=== PATIENT | male | born 1945 | race Caucasian/White ===

== ENCOUNTER 2016-06-06 22:59 | Emergency (ER) | payer OTHER, BC ==
[~2016-06-06] VITALS: Ht 170.2 cm; Wt 80.8 kg
[~2016-06-06 22:59] MED LIST: ADVIN25050 INH; AMT50 PO; ATEN50TA8 PO; ATV1 PO; ENAL5TAB83 PO; FINA5TAB PO; FLM4 PO; FLNIN NAE; FLVHFA220 INH; GLC500 PO; NAPR1TAB9 PO
[2016-06-06 23:06] VITALS: Ht 170.2 cm; Wt 80.8 kg
--- NOTE | 2016-06-06 23:40 | EMERGENCY ROOM VISIT NOTE ---
History Report prepared by [place]: Carrie Velázquez Under the Supervision of: Dr. Nohelia Godinez M.D. First contact with patient: 23:31 Chief Complaint: OTHER COMPLAINT Stated Complaint: REDNESS IN LT ARM, PAIN RADIATING TO BREAST History of Present Illness The patient is a 70 year old male who presents to the Emergency Room with complaints of worsening redness with inflammation to the left sided chest down his left arm starting 2 days [employer]. The patient states that he got a pneumonia shot in his upper left chest 2 days ago and since the shot he has had redness going down his left arm. The patient states that since the redness started he also has pain with touching his left side chest which concerned him to come be evaluated at the ED. The patient states that he has had the pneumonia shot in the past with no reaction. He denies any recent fevers or any recent heavy lifting. The patient states that he has a medical history of diabetes and sarcoidosis. He states that he had had black mold spores where he works and had a recent X-ray and blood work done at his PCP office but has not yet received the results. Source of History: patient Onset: 2 days [employer] Position: chest (left), arm (left) Quality: other (redness) Timing: worsening Associated Symptoms: No fevers Review of Systems See HPI for pertinent positives & negatives. A total of 10 systems reviewed and were otherwise negative. Past Medical & Surgical Medical Problems: (1) Diabetes (2) Sarcoidosis Family History No pertinent family history secondary to age Social History Smoking Status: Former Smoker Marital Status: Housing Status: lives with significant other Occupation Status: retired Current/Historical Medications Scheduled Amitriptyline Hcl (Elavil), 50 MG PO HS Atenolol (Tenormin), 50 MG PO DAILY Cephalexin Monohydrate (Keflex), 500 MG PO QID Enalapril (Vasotec), 5 MG PO DAILY Lorazepam (Ativan), 1 MG PO HS Scheduled PRN Acetaminophen (Tylenol), 1,000 MG PO BID PRN for Pain Fluticasone Prop/Salmeterol (Advair Diskus 250/50 60 Dose), 1 PUFF INH BID PRN for SOB/Wheezing Fluticasone Propionate (Flovent Hfa), 1 PUFFS INH BID PRN for SOB/Wheezing Fluticasone Propionate (Nasal) (Flonase Allergy Relief), 1 SPRAY DC DAILY PRN for Nasal Congestion Metformin Hcl (Glucophage), 500 MG PO BID PRN for HYPERGLYCEMIA Methocarbamol (Robaxin), 500 MG PO DAILY PRN for Muscle Spasms Allergies Coded Allergies: Thiopental (Verified Allergy, Severe, ANAPHYLAXIS, 06/07/16) Physical Exam Vital Signs Date Time Temp Pulse Resp B/P Pulse Ox O2 Delivery O2 Flow Rate FiO2 06/07/16 02:20 36.7 74 18 121/67 97 06/07/16 01:07 69 18 130/75 96 Room Air 06/06/16 23:06 36.7 82 17 127/67 93 Room Air Physical Exam Vital signs reviewed. General: Elderly, well appearing, in no significant distress. HEENT: No scleral icterus, PERRLA, neck supple. Atraumatic. Cardiovascular: Regular rate and rhythm, no extra sounds. Pulmonary: Clear to auscultation bilaterally, normal work of breathing. Abdomen: Soft, nontender, nondistended, positive bowel sounds. Musculoskeletal: Atraumatic, no peripheral edema. Neurologic: Patient awake alert and oriented x 3. Skin: Warm, dry, erythema from the left distal pectoralis region along the medial side of the left upper arm to the AC space. Medical Decision & Procedures Laboratory Results 06/07/16 00:00 Red Blood Count 4.91, Mean Corpuscular Volume 85.7, Mean Corpuscular Hemoglobin 31.8, Mean Corpuscular Hemoglobin Concent 37.1, Mean Platelet Volume 11.0, Neutrophils (%) (Auto) 62.7, Lymphocytes (%) (Auto) 27.3, Monocytes (%) (Auto) 6.9, Eosinophils (%) (Auto) 2.4, Basophils (%) (Auto) 0.5, Neutrophils # (Auto) 4.11, Lymphocytes # (Auto) 1.79, Monocytes # (Auto) 0.45, Eosinophils # (Auto) 0.16, Basophils # (Auto) 0.03 06/07/16 00:00 Test 06/07/16 00:00 White Blood Count 6.55 K/uL (4.8-10.8) Red Blood Count 4.91 M/uL (4.7-6.1) Hemoglobin 15.6 g/dL (14.0-18.0) Hematocrit 42.1 % (42-52) Mean Corpuscular Volume 85.7 fL (80-100) Mean Corpuscular Hemoglobin 31.8 pg (25-34) Mean Corpuscular Hemoglobin Concent 37.1 g/dl (32-36) Platelet Count 150 K/uL (130-400) Mean Platelet Volume 11.0 fL (7.4-10.4) Neutrophils (%) (Auto) 62.7 % Lymphocytes (%) (Auto) 27.3 % Monocytes (%) (Auto) 6.9 % Eosinophils (%) (Auto) 2.4 % Basophils (%) (Auto) 0.5 % Neutrophils # (Auto) 4.11 K/uL (1.4-6.5) Lymphocytes # (Auto) 1.79 K/uL (1.2-3.4) Monocytes # (Auto) 0.45 K/uL (0.11-0.59) Eosinophils # (Auto) 0.16 K/uL (0-0.5) Basophils # (Auto) 0.03 K/uL (0-0.2) RDW Standard Deviation 40.3 fL (36.4-46.3) RDW Coefficient of Variation 12.9 % (11.5-14.5) Immature Granulocyte % (Auto) 0.2 % Immature Granulocyte # (Auto) 0.01 K/uL (0.00-0.02) Anion Gap 9.0 mmol/L (3-11) Est Creatinine Clear Calc Drug Dose 56.7 ml/min Estimated GFR () 69.6 Estimated GFR (Non- 60.1 BUN/Creatinine Ratio 15.0 (10-20) Calcium Level 8.9 mg/dl (8.5-10.1) Total Bilirubin 0.3 mg/dl (0.2-1) Direct Bilirubin mg/dl (0-0.2) Aspartate Amino Transf (AST/SGOT) 13 U/L (15-37) Alanine Aminotransferase (ALT/SGPT) 17 U/L (12-78) Alkaline Phosphatase 79 U/L (45-117) Total Protein 6.7 gm/dl (6.4-8.2) Albumin 3.6 gm/dl (3.4-5.0) Chemistry Specimen Hemolysis Laboratory results per my review. Medications Administered Medications (Trade) Dose Ordered Sig/Tania Route Start Time Stop Time Status Last Admin Dose Admin Ceftriaxone Sodium (Rocephin Inj) 1 gm NOW STAT IV 06/06/16 23:43 06/06/16 23:44 DC 06/07/16 00:02 1 GM ED Course 2321: Past medical records reviewed. The patient was evaluated in room A3. A complete history and physical examination was performed. 2343: Ordered Rocephin Inj 1 gm IV. 0212: Upon reevaluation, the patient appeared to have improvement of his symptoms. I discussed findings with him. He verbalized agreement of the treatment plan. The patient was discharged home. Medical Decision The patient is a 70 year old male who presents to the ED with complaints of skin redness with chest pain. Differentials include but is not limited to cellulitis, abscess, MRSA infection, DVT, necrotizing fasciitis, dermatitis, drug eruption, as well as others were entertained.. This pt was evaluated and appeared to be in no distress. IV access was obtained and lab work was drawn. Pt was medicated with ceftriaxone 1 gm IV. Lab work reveals a normal WBC. I do not suspect DVT at this time. The erythema is not in the location of the injection. Pt was given a Rx for keflex x 7 days. He will f/u with PCP in 24-48 hours for reevaluation. He was advised to return to the ED for worsening of symptoms or any medical concerns. Impression Primary Impression: Cellulitis of left upper extremity Scribe Attestation The scribe's documentation has been prepared under my direction and personally reviewed by me in its entirety. I confirm that the note above accurately reflects all work, treatment, procedures, and medical decision making performed by me. Departure Information Dispostion Home / Self-Care Prescriptions Cephalexin Monohydrate (Keflex) 500 Mg Cap 500 MG PO QID, #28 CAP Prov: Nohelia Godinez M.D. 06/07/16 Referrals Kelley Small D.O. (PCP) Forms HOME CARE DOCUMENTATION FORM, IMPORTANT VISIT INFORMATION, WORK / SCHOOL INSTRUCTIONS Patient Instructions My [facility] Additional Instructions Diagnosis: Cellulitis Keflex 500 mg 4 times daily for 7 days. Monitor for signs of worsening. If fevers or increased pain develop, return to the ER for further management. Follow-up with your physician in 48 hours for reevaluation. Return to the ER for worsening of symptoms or any medical concerns.
[2016-06-06] MEDS ORDERED: CEFTRIAXONE SOD INJ 1 GM ADDVIAL IV STA (23:43)
[2016-06-07 00:09] LABS: BASO % 0.5 %; BASO ABS # 0.03 K/uL (0-0.2); COMPLETE YES; EOS % 2.4 %; HEMATOCRIT 42.1 % (42-52); IG% 0.2 %; LYMPH % 27.3 %; LYMPH ABS # 1.79 K/uL (1.2-3.4); MEAN CELL VOLUME 85.7 fL (80-100); MEAN CORPUSCULAR HEMOGLOBIN 31.8 pg (25-34); MEAN CORPUSCULAR HGB CONC 37.1 g/dl (32-36); MONO % 6.9 %; NEUT % 62.7 %; PLATELET COUNT 150 K/uL (130-400); RED BLOOD COUNT 4.91 M/uL (4.7-6.1); WHITE BLOOD COUNT 6.55 K/uL (4.8-10.8)
[2016-06-07 00:32] LABS: ALKALINE PHOSPHATASE 79 U/L (45-117); ALT/SGPT 17 U/L (12-78); AST/SGOT 13 U/L (15-37); BLOOD UREA NITROGEN 18 mg/dl (7-18); CALCIUM 8.9 mg/dl (8.5-10.1); CARBON DIOXIDE 27 mmol/L (21-32); CHLORIDE 105 mmol/L (98-107); GLUCOSE 182 mg/dl (70-99); SODIUM 141 mmol/L (136-145)
[2016-06-07] MEDS ORDERED: ADVIN25/60 INH (00:57)
[2016-06-07] MEDS ORDERED: ENAL5TAB83 PO (00:57)
[2016-06-07] MEDS ORDERED: FLUT0.15 NAE (00:57)
[2016-06-07] MEDS ORDERED: FLVHFA110 INH (00:57)
[2016-06-07] MEDS ORDERED: GLC/500 PO (00:57)
[2016-06-07] MEDS ORDERED: ATV/1 PO (00:57)
[2016-06-07] MEDS ORDERED: METH500T37 PO (00:58)
[2016-06-07] MEDS ORDERED: ACET-1256 PO (00:58)
[2016-06-07] MEDS ORDERED: CEPH500C PO (02:11)
[2016-06-07 02:20] VITALS: BP 121/67; PULSE 74; TEMP 36.7; O2SAT 97
== END 2016-06-07 02:21 | disposition home or self-care (01) ==
LOC: C.EDB 23:00 → C.EDA 06-07 02:21
DX: L03.114 Cellulitis of left upper limb (principal); E11.9 Type 2 diabetes mellitus without complications; Z87.891 Personal history of nicotine dependence; Z79.899 Other long term (current) drug therapy; Z88.8 Allergy status to other drugs, medicaments and biological substances

== ENCOUNTER → 2016-06-27 | Outpatient (CLI) | payer OTHER, BC ==
[~2016-06-27] MED LIST changes: +ACET-1256 PO; +ADVIN25/60 INH; -ADVIN25050 INH; +ATV/1 PO; -ATV1 PO; +CEPH500C PO; -FINA5TAB PO; -FLM4 PO; -FLNIN NAE; +FLUT0.15 NAE; +FLVHFA110 INH; -FLVHFA220 INH; +GLC/500 PO; -GLC500 PO; +METH500T37 PO; -NAPR1TAB9 PO
[2016-06-27 18:09] LABS: INFLUENZA A PCR Neg for Influ A (NEG); INFLUENZA B PCR Neg for Influ B (NEG)
[2016-06-29 17:44] LABS: BORDETELLA PERTUSSIS SOURCE Nasal Swab
== END | disposition home or self-care (01) ==
LOC: C.LAB 15:38
PROVIDERS: ATTEND Internal Medicine Critical Care Medicine
DX: R05 Cough (principal); J31.2 Chronic pharyngitis

== ENCOUNTER → 2016-06-28 | Outpatient (CLI) | payer OTHER, BC ==
[2016-06-29 13:10] LABS: CALCIUM URINE 13.7 mg/dl
== END | disposition home or self-care (01) ==
LOC: C.LABSPEC 10:30
PROVIDERS: ATTEND Internal Medicine Critical Care Medicine
DX: J31.2 Chronic pharyngitis (principal)

== ENCOUNTER → 2016-07-03 | Outpatient (CLI) | payer OTHER, BC ==
--- NOTE | 2016-07-05 15:14 | PULMONARY FUNCTION TEST ---
SPIROMETRY: Within normal limits. No signs of significant reversibility. LUNG VOLUMES: Within normal limits. DIFFUSION CAPACITY: Within normal limits. This is a normal study.
== END | disposition home or self-care (01) ==
LOC: C.RC 10:06
PROVIDERS: ATTEND Internal Medicine Critical Care Medicine
DX: D86.9 Sarcoidosis, unspecified (principal); J31.0 Chronic rhinitis; J31.2 Chronic pharyngitis; R06.02 Shortness of breath

== ENCOUNTER → 2016-07-04 | Outpatient (CLI) | payer OTHER, BC ==
--- NOTE | 2016-07-04 12:17 | DIAGNOSTIC IMAGING REPORT ---
CT SCAN OF THE PARANASAL SINUSES CLINICAL HISTORY: Sore throat. Headache. Rhinitis. COMPARISON STUDY: No priors. TECHNIQUE: High-resolution CT scan of the paranasal sinuses is performed. Images are reviewed in the axial, sagittal, and coronal planes. IV contrast was not administered for this examination. CT DOSE: 627.85 mGy.cm FINDINGS: Maxillary antra: Clear bilaterally. Anterior ethmoid sinuses: Clear. Posterior ethmoid sinuses: A 10 mm retention cyst is identified in the left posterior ethmoid air cell. The posterior ethmoid air cells are otherwise clear bilaterally. Sphenoid sinuses: Clear. Frontal sinuses: Trace mucosal thickening is seen bilaterally. Ostiomeatal complexes: Patent bilaterally. Frontoethmoidal and sphenoethmoidal recesses: Patent bilaterally. Carotid arteries: The carotid arteries are protuberant but covered and without septal attachments. Ethmoid roofs: The ethmoid roofs are symmetric. Nasal turbinates: Normal in appearance. Nasal septum: There is rightward deviation of the bony nasal septum. Optic nerves: Covered. Orbits: The bony orbits are intact. Orbital contents are normal in appearance. Calvarium: The skeletal structures are osteopenic. The imaged calvarium appears intact. Mastoid air cells: Well pneumatized. Brain parenchyma: Partially visualized brain parenchyma is within normal limits. IMPRESSION: No significant paranasal sinus disease. See above. Electronically signed by: Terrell Hutchins M.D. 07/04/2016 12:15 PM Dictated Date/Time: 07/04/2016 12:13 PM
--- NOTE | 2016-07-04 12:44 | DIAGNOSTIC IMAGING REPORT ---
CT OF THE CHEST WITHOUT IV CONTRAST CLINICAL HISTORY: Sarcoidosis. Rhinitis. Chest pain. Difficulty breathing. COMPARISON STUDY: Chest CT January 07, 2013 and chest radiograph June 04, 2016. CT DOSE: 346.04 mGy.cm TECHNIQUE: Axial images of the chest were obtained without IV contrast. Images were reviewed in the axial, sagittal, and coronal planes. IV contrast was not administered for this examination. FINDINGS: A 1.3 cm left lobe thyroid nodule is similar to prior exams. No enlarged axillary, mediastinal or hilar lymph nodes are present. The size of the heart is normal. There is no pericardial effusion. No pneumothorax or pleural effusion is present. Central airways are patent. A 3 mm right lower lobe nodule shown image 221 of [address] of August 08, 2006. This is benign. There is no consolidation to suggest pneumonia. There is no CT evidence of interstitial lung disease. Visual portions of the upper abdomen demonstrate fatty liver. There are calcified granulomas within the spleen. IMPRESSION: 1. No acute intrathoracic findings. 2. No suspicious pulmonary nodules. No CT evidence of interstitial lung disease. 3. Fatty liver. 4. No thoracic lymphadenopathy. Electronically signed by: Miguel Benavides M.D. 07/04/2016 12:42 PM Dictated Date/Time: 07/04/2016 12:34 PM
== END | disposition home or self-care (01) ==
LOC: C.CTS 11:48
PROVIDERS: ATTEND Internal Medicine Critical Care Medicine
DX: D86.9 Sarcoidosis, unspecified (principal); J31.2 Chronic pharyngitis

== ENCOUNTER → 2016-12-06 | Outpatient (CLI) | payer OTHER, BC ==
[~2016-12-06] MED LIST changes: +PERFLUTREN LIPID MICROSPHERE (DEFINITY) IV ONE
--- NOTE | 2016-12-06 13:31 | EXERCISE STRESS ECHO ---
*NOTICE TO RECEIVING CONSTITUTION PARTY AGENCY This information is strictly Confidential and protected under [place] law. [place] law prohibits you from making any further disclosure of this information unless further disclosure is expressly permitted by the written consent of the person to whom it pertains or is authorized by law. A general authorization for the release of medical or other information is not sufficient for this purpose. Hospital accepts no responsibility if the information is made available to any other person, INCLUDING THE PATIENT. Interpretation Summary * Name: SAEID COLON Study Date: 12/06/2016 09:53 AM BP: 109/86 mmHg * Patient Location: [facility] HR: 59 * : 1945 (M/d/yyyy) Gender: Male Height: 66 in * Age: 71 yrs Ethnicity: CA Weight: 176 lb * Ordering Physician: Wesly Pickard * Referring Physician: Wesly Pickard * Performed By: Carol Lopez * * Reason For Study: CHEST PAIN, SOB * BSA: 1.9 m2 * -- Conclusions -- * There is borderline asymmetric left ventricular hypertrophy. * Left ventricular systolic function is normal. * The right ventricular systolic function is reduced as assessed by tricuspid annular plane systolic excursion (TAPSE) (TAPSE <1.6 cm). * Mild aortic regurgitation. * Right ventricular systolic pressure is normal. * Borderline dilated descending aorta. * Diagnostic stress echocardiogram without evidence of inducible ischemia Procedure Details * TST, CPT #72420 * ECHO DOPPLER, CPT #86323 * ECHO COLOR FLOW, CPT #26450 * A contrast injection of Definity was performed to improve assessment of LV function. * Contrast was injected into an intravenous site in the left arm. * One vial of Definity ultrasound contrast was diluted in normal saline to a total volume of 10 ml. A total of '4' ml of solution was administered during imaging. * Lot # [id number] of Definity utilized for procedure. * Expiration date 12/26. * The attending nurse who injected the contrast agent was GINA LEONG RN. Left Ventricular Findings with Stress * Diagnostic stress echocardiogram without evidence of inducible ischemia Left Ventricle * The left ventricle is grossly normal size. * There is borderline asymmetric left ventricular hypertrophy. * Ejection Fraction = 50-55%. * Left ventricular systolic function is normal. * The left ventricular wall motion is normal at rest. Right Ventricle * The right ventricle is grossly normal size. * The right ventricular systolic function is reduced as assessed by tricuspid annular plane systolic excursion (TAPSE) (TAPSE <1.6 cm). Atria * The left atrial size is normal. * Right atrial size is normal. Mitral Valve * The mitral valve anatomy is normal. * There is no mitral regurgitation noted. Tricuspid Valve * The tricuspid valve is not well visualized, but is grossly normal. * There is trace tricuspid regurgitation. * Right ventricular systolic pressure is normal. Aortic Valve * The aortic valve is trileaflet. * The right coronary cusp is poorly mobile * Mild aortic regurgitation. * There is an eccentric jet of aortic insufficiency directed against the septum. Great Vessels * Borderline dilated descending aorta. Pericardium * There is no pericardial effusion. Stress Parameters * Rest heart rate was '59' BPM. * Rest blood pressure was '109/86' * Maximum heart rate achieved was 125 bpm. * Maximum heart rate was 85 % of maximum age-predicted heart rate. * Maximum blood pressure was '157/53' * Total exercise time was '8:25' * Maximum exercise MET level achieved was '10.1' METS * Maximum treadmill speed was '3.40' miles per hour. * Maximum treadmill elevation was '14.00'% grade. * Exercise was terminated due to 'fatigue' * The patient exhibited fatigue during exercise. * Normal blood pressure response to exercise. * Target heart rate achieved. Left Ventricular Findings with Stress * Baseline EKG was normal There were no significant ST or T-wave changes during exercise or recovery Baseline echocardiographic images were normal There appeared to be adequate augmentation at peak exertion without inducible wall motion abnormalities There was normal blood pressure and heart rate response to exercise There were no symptoms reported during the test Duron treadmill score: 8 (low risk) Heart rate recovery was normal MMode 2D Measurements and Calculations IVSd 1.3 cm IVSs 2.0 cm LVIDd 4.5 cm LVIDs 2.9 cm LVPWd 0.92 cm LVPWs 1.4 cm IVS/LVPW 1.4 FS 36.0 % EDV(Teich) 92.4 ml ESV(Teich) 31.7 ml EF(Teich) 65.8 % EDV(cubed) 91.1 ml ESV(cubed) 23.9 ml EF(cubed) 73.8 % % IVS thick 49.8 % % LVPW thick 48.3 % LV mass(C)d 177.5 grams LV mass(C)dI 93.7 grams/m\S\2 LV mass(C)s 178.6 grams LV mass(C)sI 94.3 grams/m\S\2 CO(Teich) 3.5 l/min CI(Teich) 1.9 l/min/m\S\2 SV(Teich) 60.8 ml SI(Teich) 32.1 ml/m\S\2 CO(cubed) 3.9 l/min CI(cubed) 2.1 l/min/m\S\2 SV(cubed) 67.2 ml SI(cubed) 35.5 ml/m\S\2 ACS 1.1 cm LA dimension 3.5 cm asc Aorta Diam 3.4 cm LVOT diam 1.9 cm LVOT area 2.9 cm\S\2 LVAd ap4 18.4 cm\S\2 LVLd ap4 6.6 cm EDV(MOD-sp4) 44.9 ml LVAs ap4 10.0 cm\S\2 LVLs ap4 5.0 cm ESV(MOD-sp4) 17.0 ml EF(MOD-sp4) 62.1 % LVAd ap2 21.3 cm\S\2 LVLd ap2 6.9 cm EDV(MOD-sp2) 55.0 ml LVAs ap2 11.2 cm\S\2 LVLs ap2 5.2 cm ESV(MOD-sp2) 19.9 ml EF(MOD-sp2) 63.8 % CO(MOD-sp4) 1.6 l/min CI(MOD-sp4) 0.85 l/min/m\S\2 SV(MOD-sp4) 27.9 ml SI(MOD-sp4) 14.7 ml/m\S\2 CO(MOD-sp2) 2.0 l/min CI(MOD-sp2) 1.1 l/min/m\S\2 SV(MOD-sp2) 35.1 ml SI(MOD-sp2) 18.5 ml/m\S\2 Doppler Measurements and Calculations MV E max iliana 73.7 cm/sec MV A max iliana 95.2 cm/sec MV E/A 0.77 MV dec time 0.19 sec Ao V2 max 177.0 cm/sec Ao max PG 12.5 mmHg Ao max PG (full) 10.8 mmHg ALIYA(V,A) 1.1 cm\S\2 ALIYA(V,D) 1.1 cm\S\2 AI max iliana 389.7 cm/sec AI max PG 60.8 mmHg AI dec slope 135.9 cm/sec\S\2 AI P1/2t 840.1 msec LV V1 max PG 1.8 mmHg LV V1 max 66.4 cm/sec MR max iliana 248.2 cm/sec MR max PG 24.6 mmHg PA V2 max 40.2 cm/sec PA max PG 0.64 mmHg TR max iliana 226.4 cm/sec
== END | disposition home or self-care (01) ==
LOC: C.CPL 09:12
PROVIDERS: ATTEND Internal Medicine Pulmonary Disease
DX: R06.02 Shortness of breath (principal); R07.89 Other chest pain

== ENCOUNTER 2017-04-02 14:48 | Emergency (ER) | payer OTHER, BC ==
[~2017-04-02] VITALS: Ht 165.1 cm; Wt 80.0 kg
[~2017-04-02 14:48] MED LIST changes: -CEPH500C PO; -PERFLUTREN LIPID MICROSPHERE (DEFINITY) IV ONE
[2017-04-02 14:51] VITALS: TEMP 37.7; Ht 165.1 cm; Wt 80.0 kg
[2017-04-02] MEDS ORDERED: CETI10TA84 PO (15:26)
[2017-04-02] MEDS ORDERED: AYRG NAE (15:26)
[2017-04-02 15:36] VITALS: BP 131/69; PULSE 81; O2SAT 97
--- NOTE | 2017-04-02 17:23 | EMERGENCY ROOM VISIT NOTE ---
History First contact with patient: 14:54 Chief Complaint: LEG PAIN,LEG INJURY Stated Complaint: HAMSTRING "POPPED" History of Present Illness The patient is a 71 year old male who presents to the Emergency Room with complaints of an injury to his right posterior thigh. He was helping his son move a tree stand when he felt a pop. The patient reports pain with ambulation , but denies any pain when sitting. He reports that the pain feels like it's in the mid to upper thigh and into the buttock. He denies any pain to the posterior knee region. He denies any back pain, paresthesias or numbness of the right lower extremity. The patient has had a prior history of left Achilles tendon rupture, repaired by Dr. Machado. The patient does take a baby aspirin daily. He rates his pain a 6 out of 10. Review of Systems 10 system review was performed and was negative except for pertinent positives and negatives as indicated in history of present illness Past Medical/Surgical History Medical Problems: (1) Diabetes (2) Sarcoidosis Family History No pertinent family history secondary to age Social History Smoking Status: Never Smoker Marital Status: Housing Status: lives with significant other Occupation Status: retired Current/Historical Medications Scheduled Amitriptyline Hcl (Elavil), 50 MG PO HS Atenolol (Tenormin), 50 MG PO DAILY Cetirizine (Zyrtec), 10 MG PO DAILY Enalapril (Vasotec), 5 MG PO DAILY Lorazepam (Ativan), 1 MG PO HS Metformin Hcl (Glucophage), 500 MG PO BID Scheduled PRN Acetaminophen (Tylenol), 1,000 MG PO BID PRN for Pain Fluticasone Prop/Salmeterol (Advair Diskus 250/50 60 Dose), 1 PUFF INH BID PRN for SOB/Wheezing Fluticasone Propionate (Flovent Hfa), 1 PUFFS INH BID PRN for SOB/Wheezing Fluticasone Propionate (Nasal) (Flonase Allergy Relief), 1 SPRAY DC DAILY PRN for Nasal Congestion Methocarbamol (Robaxin), 500 MG PO DAILY PRN for Muscle Spasms Sodium Chloride ([place] Saline Nasal), 1 APPLN DC DAILY PRN for SINUS CONGESTION Physical Exam Vital Signs Date Time Temp Pulse Resp B/P (MAP) Pulse Ox O2 Delivery O2 Flow Rate FiO2 04/02/17 15:36 81 20 131/69 97 04/02/17 14:51 37.7 78 20 136/74 95 Room Air Physical Exam CONSTITUTIONAL: Healthy and well nourished. Alert and oriented X 3 with positive affect. Patient does not appear in any acute distress. HEENT: Normocephalic, atraumatic. Pupils equal, round and reactive. NECK: Full active range of motion without discomfort. MUSCULOSKELETAL: Examination shows mild tenderness to palpation through the posterior biceps musculature. He has no focal tenderness or palpable defects of the distal hamstrings. No popliteal masses, soft tissue edema or ecchymosis. The patient has mild tenderness to palpation through the initial tuberosity. Negative logroll. Pelvis stable with rock. No tenderness to palpation through the lower lumbar spine, and negative sitting straight leg raise. Pedal pulses are intact. INTEGUMENTARY: No rash or other significant dermatologic conditions noted. NEUROLOGIC: Right lower extremity is sensory intact. Medical Decision & Procedures ED Course Patient history and physical exam were performed. Nurse's notes were reviewed. Vital signs were reviewed and normal. The patient was advised that he likely has either a myofascial injury or possible proximal tendon rupture. The patient reports that he does have crutches at home. He was encouraged to limit weightbearing until he follows up with [facility] for reevaluation. The patient was instructed to watch closely for any developing compartment syndrome, etc. she since he is on a baby aspirin. He may also apply an Ry wrap to the thigh, return to the emergency department for any significantly worsening thigh girth, bruising or pain. The patient was happy with plan of care, and voiced understanding of all discharge instructions. Medical Decision Medication Reconcilliation Current Medication List: was personally reviewed by ma Blood Pressure Screening Patient's blood pressure: Normal blood pressure Impression Primary Impression: Strain of muscle, fascia and tendon of the posterior musclegro... Departure Information Dispostion Home / Self-Care Referrals Bar Machado D.O. Forms HOME CARE DOCUMENTATION FORM, IMPORTANT VISIT INFORMATION Patient Instructions My [facility] Additional Instructions Intermittently apply ice to back of the thigh for swelling. You may also want to apply an Ry wrap with any developing bruising. Watch for any significantly worsening swelling/pain of the thigh, and return to the emergency department immediately. Mild swelling and bruising is to be expected. Tylenol 1000 mg every 6-8 hours as needed for pain. Use your crutches or walker as needed for additional help with ambulation. Follow-up with [facility] for further reevaluation and management.
== END 2017-04-02 15:30 | disposition home or self-care (01) ==
LOC: C.EDB 14:49 → C.EDD 15:30
DX: S76.901A Unspecified injury of unspecified muscles, fascia and tendons at thigh level, right thigh, initial encounter (principal); X50.9XXA Other and unspecified overexertion or strenuous movements or postures, initial encounter; Y92.89 Other specified places as the place of occurrence of the external cause; E11.9 Type 2 diabetes mellitus without complications; Z79.899 Other long term (current) drug therapy